=== PATIENT | female | born 1990 | race Caucasian/White ===

== ENCOUNTER 2020-10-25 17:07 | Emergency (ER) | payer MEDICAID ==
[2020-10-25 17:16] VITALS: BP 170/119
--- NOTE | 2020-10-25 17:31 | ED Physician Documentation ---
PD HPI URI - Stated complaint Stated Complaint: SOA/COUGH - Chief complaint Chief Complaint: Heent - History obtained from History obtained from: Patient - Additional information Additional information: About 10 days ago she returned from a trip to [place]. About 8 days ago she became symptomatic with runny nose, progressive nonproductive cough, shortness of breath. She had low-grade fevers. She denies body aches. No known exposure to sick contacts. She is not immunized against Covid. Review of Systems Constitutional: reports: Fever, Chills. denies: Myalgias Nose: reports: Rhinorrhea / runny nose Respiratory: reports: Dyspnea, Cough PD PAST MEDICAL HISTORY - Present Medications Home Medications: Ambulatory Orders Medication Instructions Recorded Confirmed Albuterol Sulf [Ventolin Hfa 1 - 2 puffs INH Q4HR PRN #1 inhaler 10/25/20 Inhaler] Azithromycin [Zithromax] 1 tab PO DAILY #6 tablet 10/25/20 Benzonatate [Tessalon] 200 mg PO TID PRN #15 10/25/20 predniSONE [Deltasone] 60 mg PO DAILY 5 Days #15 tablet 10/25/20 - Allergies Allergies/Adverse Reactions: Allergies Allergy/AdvReac Type Severity Reaction Status Date / Time codeine Allergy Nausea Verified 10/25/20 17:17 doxycycline Allergy Nausea Verified 10/25/20 17:17 PD ED PE NORMAL - Vitals Vital signs reviewed: Yes - General General: Alert and oriented X 3, No acute distress - HEENT HEENT: Ears normal, Pharynx benign - Neck Neck: Supple, no meningeal sign, No bony TTP - Cardiac Cardiac: RRR, No murmur - Respiratory Respiratory: Other (exp wheezing, diminished) - Abdomen Abdomen: Non tender - Back Back: No spinal TTP - Derm Derm: No rash - Neuro Neuro: Alert and oriented X 3, Normal speech Results - Vitals Vitals: Vital Signs - 24 hr 10/25/20 17:09 Temperature 37.8 C Heart Rate 96 Respiratory 16 Rate Blood Pressure 170/119 H O2 Saturation 95 Oxygen O2 Source Room air PD MEDICAL DECISION MAKING - ED course ED course: History and exam most consistent with bronchitis. X-ray considered, but given the ongoing pandemic seems like it would simply be better to just antibiosis her. Note doxycycline allergy. Departure - Departure Disposition: 01 Home, Self Care Clinical Impression: Wheezing on expiration, Cough Condition: Good Record reviewed to determine appropriate education?: Yes Instructions: Bronchitis Acute Prescriptions: Albuterol Sulf [Ventolin Hfa Inhaler] 1 - 2 puffs INH Q4HR PRN #1 inhaler PRN Reason: Shortness Of Air/Wheezing predniSONE [Deltasone] 60 mg PO DAILY 5 Days #15 tablet Benzonatate [Tessalon] 200 mg PO TID PRN #15 PRN Reason: Cough Azithromycin [Zithromax] 1 tab PO DAILY #6 tablet Comments: You have a Covid test pending. You need to self quarantine until the result is done and negative. Do not leave your house. Do not get near anybody. The results should be done in 48 to 72 hours. We will call with a positive result, the fastest way to get a negative result for confirmation though is to go to the hospital website at [email or web address], click on the my [facility] tab and sign up for the patient portal. If any friends or family get sick and would like to have a Covid test done, but do not have signs or symptoms that would necessitate being hospitalized, we encourage testing through our coronavirus swabbing station, call [phone] to schedule an appointment.
== END 2020-10-25 17:45 | disposition home or self-care (01) ==
LOC: ED 17:07
DX: R06.2 Wheezing (principal); R05 Cough; Z20.822 Contact with and (suspected) exposure to COVID-19; Z88.1 Allergy status to other antibiotic agents
CPT/HCPCS: 99283